=== PATIENT | male | born 2000 | race African-American/Black ===

== ENCOUNTER 2018-04-21 19:07 | Emergency (ER) | payer OTHER ==
[~2018-04-21] VITALS: Ht 205.7 cm; Wt 136.1 kg
[~2018-04-21 19:07] MED LIST: MOTRIN CHI100 MG/5 M PO
== END 2018-04-21 19:58 | disposition home or self-care (01) ==
LOC: ED 19:07
DX: S51.812A Laceration without foreign body of left forearm, initial encounter (principal); W25.XXXA Contact with sharp glass, initial encounter; Y93.E1 Activity, personal bathing and showering; Y92.091 Bathroom in other non-institutional residence as the place of occurrence of the external cause; Y99.9 Unspecified external cause status